=== PATIENT | male | born 1975 | race Hispanic/Latino ===

== ENCOUNTER 2023-11-22 19:06 | Inpatient (IN) | payer BC ==
[~2023-11-22] VITALS: Ht 165.1 cm; Wt 84.4 kg
[2023-11-22 19:40] VITALS: PULSE 101; RESP 20; O2SAT 99
[2023-11-22] MEDS ORDERED: SODIUM CHLORIDE FLUSH 10 ML SYR INJ PRN (19:45)
[2023-11-22 20:25] LABS: INR 0.98; PARTIAL THROMBOPLASTIN TIME 26.9 seconds (23.8-35.5); PROTHROMBIN TIME 13.5 seconds (11.9-14.5)
[2023-11-22 20:26] LABS: ALANINE AMINOTRANSFERASE < 6 IU/L (0-55); ALBUMIN 3.5 g/dL (3.5-5.0); ALBUMIN/GLOBULIN RATIO 1.2 (0.8-2.0); ALKALINE PHOSPHATASE 63 IU/L (40-150); ANION GAP 13.9 mmol/L (8-16); BILIRUBIN,TOTAL 0.6 mg/dL (0.2-1.2); BLOOD UREA NITROGEN 10 mg/dL (7-26); BUN/CREATININE RATIO 15 (6-25); CALCIUM 9.2 mg/dL (8.4-10.2); CARBON DIOXIDE 24 mmol/L (22-29); CHLORIDE 101 mmol/L (98-107); CREATININE, SERUM 0.67 mg/dL (0.72-1.25); EST GLOMERULAR FILTRATION RATE 114 ML/MIN (>=60); GLUCOSE 134 mg/dL (74-118); POTASSIUM 3.9 mmol/L (3.5-5.1); SODIUM 135 mmol/L (136-145); TOTAL PROTEIN 6.4 g/dL (6.5-8.1)
[2023-11-22 20:27] LABS: TROPONIN I 0.018 ng/mL (0-0.300)
[2023-11-22 20:29] LABS: RED BLOOD COUNT 2.53 x10e6/uL (4.3-5.7)
[2023-11-22 20:30] LABS: EOSINOPHILS # (AUTO) 0.2 (0.0-0.4); EOSINOPHILS % 2.3 % (0.0-6.0); LYMPHOCYTES # (AUTO) 1.5 (1.0-3.2); LYMPHOCYTES % 19.5 % (18.0-39.1); MEAN CORPUSCULAR HEMOGLOBIN 18.6 pg (28-32); MEAN CORPUSCULAR HGB CONC 25.8 g/dL (31-35); MEAN CORPUSCULAR VOLUME 71.9 fL (81-99); MONOCYTES # (AUTO) 0.6 (0.2-0.8); MONOCYTES % 7.5 % (4.4-11.3); NEUTROPHILS # (AUTO) 5.6 (2.1-6.9); NEUTROPHILS % 70.3 % (38.7-80.0); PLATELET COUNT 279 x10e3/uL (140-360); RED CELL DISTRIBUTION WIDTH 19.8 % (11.7-14.4)
[2023-11-22 20:47] LABS: HEMATOCRIT 18.2 % (38.2-49.6); HEMOGLOBIN 4.7 g/dL (14.0-18.0)
[2023-11-22] MEDS ORDERED: DOCUSATE SODIUM 100 MG CAP PO PRN (23:00)
[2023-11-22] MEDS ORDERED: BENZONATATE 100 MG CAP PO PRN (23:00)
[2023-11-22] MEDS ORDERED: POTASSIUM CHLORIDE 20 MEQ TAB CR PO PRN (23:00)
[2023-11-22] MEDS ORDERED: DEXTROSE 50% SYRINGE 50 ML IV PRN (23:00)
[2023-11-22] MEDS ORDERED: ALBUTEROL/IPRATROPIUM 3 ML NEB NEB PRN (23:00)
[2023-11-22] MEDS ORDERED: HYDRALAZINE HCL 20 MG/ML VIAL IV PRN (23:00)
[2023-11-22] MEDS ORDERED: SIMETHICONE 80 MG CHEW PO PRN (23:00)
[2023-11-22] MEDS ORDERED: LIDOCAINE 4% PATCH TP PRN (23:00)
[2023-11-23 00:45] LABS: % IRON SATURATION 2 % (15-50); IRON 13 ug/dL (65-175); TOTAL IRON BINDING CAPACITY 535 ug/dL (261-478); TRANSFERRIN 382 mg/dL (174-364)
[2023-11-23] MEDS: SODIUM CHLORIDE 0.9% 250ML 250 ML IV ONE (01:06)
[2023-11-23 07:14] LABS: BASOPHILS # (AUTO) 0.1 (0.0-0.1); BASOPHILS % 1.2 % (0.0-1.0); EOSINOPHILS # (AUTO) 0.2 (0.0-0.4); EOSINOPHILS % 3.1 % (0.0-6.0); HEMATOCRIT 24.8 % (38.2-49.6); LYMPHOCYTES # (AUTO) 1.2 (1.0-3.2); LYMPHOCYTES % 17.6 % (18.0-39.1); MEAN CORPUSCULAR HEMOGLOBIN 22.9 pg (28-32); MEAN CORPUSCULAR HGB CONC 29.8 g/dL (31-35); MEAN CORPUSCULAR VOLUME 76.8 fL (81-99); MONOCYTES # (AUTO) 0.6 (0.2-0.8); MONOCYTES % 8.6 % (4.4-11.3); NEUTROPHILS # (AUTO) 4.7 (2.1-6.9); NEUTROPHILS % 69.1 % (38.7-80.0); PLATELET COUNT 235 x10e3/uL (140-360); RED BLOOD COUNT 3.23 x10e6/uL (4.3-5.7); WHITE BLOOD COUNT 6.75 x10e3/uL (4.8-10.8)
[2023-11-23 07:18] LABS: HEMOGLOBIN 7.4 g/dL (14.0-18.0)
[2023-11-23 07:40] LABS: ANION GAP 12.1 mmol/L (8-16); CALCIUM 8.8 mg/dL (8.4-10.2); CREATININE, SERUM 0.64 mg/dL (0.72-1.25); POTASSIUM 4.1 mmol/L (3.5-5.1)
[2023-11-23 07:52] VITALS: TEMP 98.7
[2023-11-23 08:03] LABS: FERRITIN 4.97 ng/mL (21.81-274.66); THYROID STIMULATING HORMONE 1.035 uIU/mL (0.350-4.940)
[2023-11-23 09:53] VITALS: PULSE 99; RESP 16; O2SAT 98
[2023-11-23 10:16] LABS: ANISOCYTOSIS MODERATE; HYPOCHROMASIA MODERATE; MICROCYTOSIS MODERATE; PLATELET ESTIMATE ADEQUATE; PLATELET MORPHOLOGY COMMENT FEW LARGE; POLYCHROMASIA FEW; RBC MORPHOLOGY COMMENT ABNORMAL; TARGET CELLS FEW
[2023-11-23] MEDS ORDERED: SUGAMMADEX SODIUM 200 MG/2 ML VIAL IV ONE (12:02)
[2023-11-23] MEDS ORDERED: ROCURONIUM BROMIDE 10 MG/ML 5ML VIAL IV ONE (12:02)
[2023-11-23] MEDS ORDERED: PROPOFOL IV EMULSION 10 MG/ML 20 ML VIAL ONE ×2 (12:02→17:39)
[2023-11-23] MEDS ORDERED: LIDOCAINE HCL 2% LOCAL INJ 5 ML SDV VIAL INJ ONE ×2 (12:02→17:39)
[2023-11-23] MEDS ORDERED: KETAMINE HCL INJ 50 MG/ML 10 ML VIAL ONE (12:02)
[2023-11-23] MEDS ORDERED: DEXAMETHASONE SOD PHOS INJ 4 MG/ML SDV ONE (12:02)
[2023-11-23] MEDS ORDERED: ONDANSETRON HCL INJ 2MG/ML 2ML 2 MG/ML VIAL ONE (12:02)
[2023-11-23] MEDS ORDERED: ACETAMINOPHEN 1000 MG/100 ML IV ONE (12:02)
[2023-11-23] MEDS ORDERED: DEXMEDETOMIDINE HCL 200 MCG/2 ML VIAL ONE (12:02)
[2023-11-23 13:47] LABS: FOLATE 14.4 ng/mL (7.0-15.4)
[2023-11-23] MEDS ORDERED: CYANOCOBALAMIN 1,000 MCG TAB PO SCH (18:00)
[2023-11-23 19:00] VITALS: PULSE 72; RESP 19; O2SAT 99
[2023-11-23 22:30] VITALS: BP 128/85; PULSE 71; RESP 17; TEMP 98.2; O2SAT 100
[2023-11-23] MEDS: BISACODYL 5 MG TAB EC PO SCH (23:04)
[2023-11-23] MEDS ORDERED: CYANOCOBALAMIN INJ 1,000 MCG/ML VIAL IM ONE (23:45)
[2023-11-24] VITALS (10 sets, daily range): BP systolic 101–128; BP diastolic 62–85; PULSE 67–98; RESP 16–22; TEMP 98.1–99.6; O2SAT 95–100
[2023-11-24] MEDS: CYANOCOBALAMIN INJ 1,000 MCG/ML VIAL IM ONE (00:11)
[2023-11-24] MEDS: MELATONIN 5 MG TABLET PO PRN (00:21)
[2023-11-24] MEDS: IRON SUCROSE 100 MG in SODIUM CHLORIDE 0.9% 100 ML IV SCH (00:21)
[2023-11-24] MEDS: BISACODYL 5 MG TAB EC PO ONE (05:10)
[2023-11-24] MEDS: CITRATE OF MAGNESIA 300ML BOTTLE PO SCH (05:16)
[2023-11-24 05:21] LABS: BASOPHILS # (AUTO) 0.1 (0.0-0.1); BASOPHILS % 0.9 % (0.0-1.0); EOSINOPHILS # (AUTO) 0.2 (0.0-0.4); EOSINOPHILS % 3.2 % (0.0-6.0); HEMATOCRIT 23.4 % (38.2-49.6); HEMOGLOBIN 7.1 g/dL (14.0-18.0); LYMPHOCYTES # (AUTO) 1.1 (1.0-3.2); LYMPHOCYTES % 16.4 % (18.0-39.1); MEAN CORPUSCULAR HEMOGLOBIN 22.9 pg (28-32); MEAN CORPUSCULAR HGB CONC 30.3 g/dL (31-35); MEAN CORPUSCULAR VOLUME 75.5 fL (81-99); MONOCYTES # (AUTO) 0.6 (0.2-0.8); MONOCYTES % 9.3 % (4.4-11.3); NEUTROPHILS # (AUTO) 4.6 (2.1-6.9); NEUTROPHILS % 69.7 % (38.7-80.0); PLATELET COUNT 246 x10e3/uL (140-360); RED CELL DISTRIBUTION WIDTH 20.2 % (11.7-14.4); WHITE BLOOD COUNT 6.58 x10e3/uL (4.8-10.8)
[2023-11-24 05:41] LABS: ANION GAP 13.8 mmol/L (8-16); CALCIUM 8.7 mg/dL (8.4-10.2); CREATININE, SERUM 0.66 mg/dL (0.72-1.25); POTASSIUM 3.8 mmol/L (3.5-5.1)
[2023-11-24] MEDS ORDERED: METFORMIN HCL500 MG PO (08:06)
[2023-11-24] MEDS ORDERED: LOSARTAN POTASS50 MG PO (08:06)
[2023-11-24] MEDS ORDERED: GLYBURIDE5 MG PO (08:06)
[2023-11-24] MEDS ORDERED: CYANOCOBALAMIN INJ 1,000 MCG/ML VIAL IM SCH (09:00)
[2023-11-24] MEDS: CYANOCOBALAMIN INJ 1,000 MCG/ML VIAL IM SCH (09:22)
[2023-11-24] MEDS ORDERED: PROPOFOL IV EMULSION 0 ML IV ONE (15:09)
[2023-11-25] VITALS (11 sets, daily range): BP systolic 95–125; BP diastolic 65–78; PULSE 65–88; RESP 16–20; TEMP 98.3–99; O2SAT 96–100
[2023-11-25] MEDS: CITRATE OF MAGNESIA 300ML BOTTLE PO ONE ×2 (00:22→09:25)
[2023-11-26] VITALS (11 sets, daily range): BP systolic 89–119; BP diastolic 51–89; PULSE 63–73; RESP 17–18; TEMP 97.7–99.2; O2SAT 97–100
[2023-11-26 05:15] LABS: BASOPHILS % 0.4 % (0.0-1.0); EOSINOPHILS # (AUTO) 0.2 (0.0-0.4); EOSINOPHILS % 2.7 % (0.0-6.0); HEMATOCRIT 27.5 % (38.2-49.6); HEMOGLOBIN 7.8 g/dL (14.0-18.0); LYMPHOCYTES % 14.2 % (18.0-39.1); MEAN CORPUSCULAR HEMOGLOBIN 22.7 pg (28-32); MEAN CORPUSCULAR HGB CONC 28.4 g/dL (31-35); MONOCYTES # (AUTO) 0.7 (0.2-0.8); MONOCYTES % 9.9 % (4.4-11.3); NEUTROPHILS # (AUTO) 5.1 (2.1-6.9); NEUTROPHILS % 72.1 % (38.7-80.0); PLATELET COUNT 258 x10e3/uL (140-360); RED BLOOD COUNT 3.43 x10e6/uL (4.3-5.7); RED CELL DISTRIBUTION WIDTH 22.7 % (11.7-14.4); WHITE BLOOD COUNT 7.06 x10e3/uL (4.8-10.8)
[2023-11-26 05:18] LABS: MEAN CORPUSCULAR VOLUME 80.2 fL (81-99)
[2023-11-26 05:33] LABS: ANION GAP 11.5 mmol/L (8-16); CREATININE, SERUM 0.71 mg/dL (0.72-1.25); POTASSIUM 3.5 mmol/L (3.5-5.1)
[2023-11-26] MEDS ORDERED: IOPAMIDOL 370 MG/ML 100 ML INFUS..BTL INJ ONE (07:02)
[2023-11-26] MEDS ORDERED: SODIUM CHLORIDE 0.9% 200 ML ONE (14:27)
[2023-11-26] MEDS ORDERED: SODIUM CHLORIDE 0.9% 100 ML ONE (14:27)
[2023-11-27] VITALS (9 sets, daily range): BP systolic 100–118; BP diastolic 64–82; PULSE 67–79; RESP 18–20; TEMP 97.1–99.9; O2SAT 96–100
[2023-11-28] VITALS (11 sets, daily range): BP systolic 90–116; BP diastolic 63–72; PULSE 59–79; RESP 16–18; TEMP 98.2–99.4; O2SAT 96–100
[2023-11-28] MEDS: ACETAMINOPHEN 325 MG TAB PO PRN (00:26)
[2023-11-28] MEDS: MIDODRINE 2.5 MG TAB PO ONE (14:22)
[2023-11-28] MEDS: DEXTROSE 5%/0.9% SOD CHL 1,000 ML IV SCH (14:22)
[2023-11-28 14:43] LABS: BASOPHILS % 0.5 % (0.0-1.0); EOSINOPHILS # (AUTO) 0.2 (0.0-0.4); EOSINOPHILS % 2.6 % (0.0-6.0); HEMATOCRIT 27.8 % (38.2-49.6); LYMPHOCYTES # (AUTO) 1.2 (1.0-3.2); LYMPHOCYTES % 15.7 % (18.0-39.1); MEAN CORPUSCULAR HGB CONC 28.8 g/dL (31-35); MEAN CORPUSCULAR VOLUME 79.9 fL (81-99); MONOCYTES # (AUTO) 0.7 (0.2-0.8); NEUTROPHILS # (AUTO) 5.3 (2.1-6.9); NEUTROPHILS % 71.7 % (38.7-80.0); PLATELET COUNT 223 x10e3/uL (140-360); RED BLOOD COUNT 3.48 x10e6/uL (4.3-5.7); RED CELL DISTRIBUTION WIDTH 23.9 % (11.7-14.4); WHITE BLOOD COUNT 7.43 x10e3/uL (4.8-10.8)
[2023-11-28 14:57] LABS: ANION GAP 13.9 mmol/L (8-16); CREATININE, SERUM 0.69 mg/dL (0.72-1.25); POTASSIUM 3.9 mmol/L (3.5-5.1)
[2023-11-28] MEDS: SODIUM CHLORIDE 0.9% 500ML 500 ML IV ONE (15:10)
[2023-11-28 15:21] LABS: CALCIUM 8.9 mg/dL (8.4-10.2)
[2023-11-28] MEDS: DIPHENHYDRAMINE HCL 25 MG CAP PO PRN (21:33)
[2023-11-29] VITALS (31 sets, daily range): BP systolic 100–146; BP diastolic 63–93; PULSE 57–80; RESP 8–20; TEMP 97.4–99.4; O2SAT 96–100
[2023-11-29 05:47] LABS: BASOPHILS # (AUTO) 0.1 (0.0-0.1); BASOPHILS % 0.7 % (0.0-1.0); EOSINOPHILS # (AUTO) 0.3 (0.0-0.4); EOSINOPHILS % 3.4 % (0.0-6.0); HEMATOCRIT 29.2 % (38.2-49.6); LYMPHOCYTES # (AUTO) 1.2 (1.0-3.2); LYMPHOCYTES % 15.6 % (18.0-39.1); MEAN CORPUSCULAR HEMOGLOBIN 22.8 pg (28-32); MEAN CORPUSCULAR HGB CONC 27.4 g/dL (31-35); MONOCYTES # (AUTO) 0.7 (0.2-0.8); MONOCYTES % 9.8 % (4.4-11.3); NEUTROPHILS # (AUTO) 5.2 (2.1-6.9); NEUTROPHILS % 69.4 % (38.7-80.0); PLATELET COUNT 217 x10e3/uL (140-360); RED BLOOD COUNT 3.51 x10e6/uL (4.3-5.7); RED CELL DISTRIBUTION WIDTH 23.4 % (11.7-14.4); WHITE BLOOD COUNT 7.55 x10e3/uL (4.8-10.8)
[2023-11-29 05:50] LABS: MEAN CORPUSCULAR VOLUME 83.2 fL (81-99)
[2023-11-29 06:30] LABS: ANION GAP 10.7 mmol/L (8-16); CALCIUM 8.5 mg/dL (8.4-10.2); CREATININE, SERUM 0.65 mg/dL (0.72-1.25); POTASSIUM 3.7 mmol/L (3.5-5.1)
[2023-11-29 07:11] LABS: ANISOCYTOSIS MODERATE; HYPOCHROMASIA MODERATE; PLATELET ESTIMATE ADEQUATE; PLATELET MORPHOLOGY COMMENT NORMAL; RBC MORPHOLOGY COMMENT ABNORMAL
[2023-11-29] MEDS: SODIUM CHLORIDE 0.9% 250ML 250 ML IV ONE (07:29)
[2023-11-29] MEDS ORDERED: FENTANYL CITRATE/PF 100MCG/2 ML INJ ONE (10:58)
[2023-11-29] MEDS ORDERED: NALOXONE HCL INJ 0.4 MG/ML AMP IV PRN (16:15)
[2023-11-29] MEDS: HYDROMORPHONE 0.2MG/ML-SOD CHL 30ML PCA SYRINGE IV PRN (16:41)
[2023-11-29] MEDS: DEXTROSE 5%/LACTATED RINGERS 1,000 ML IV SCH (17:30)
[2023-11-29] MEDS ORDERED: ACETAMINOPHEN 1000 MG/100 ML IV PRN (18:00)
[2023-11-29] MEDS: SODIUM CHLORIDE 0.9% 250ML IRRIG IR SCH (20:15)
[2023-11-30] VITALS (62 sets, daily range): BP systolic 94–134; BP diastolic 63–84; PULSE 67–93; RESP 6–17; TEMP 97.9–98.3; O2SAT 88–100
[2023-11-30 06:53] LABS: BASOPHILS % 0.2 % (0.0-1.0); EOSINOPHILS # (AUTO) 0.1 (0.0-0.4); EOSINOPHILS % 0.5 % (0.0-6.0); HEMATOCRIT 27.4 % (38.2-49.6); HEMOGLOBIN 7.4 g/dL (14.0-18.0); LYMPHOCYTES # (AUTO) 0.8 (1.0-3.2); LYMPHOCYTES % 8.9 % (18.0-39.1); MEAN CORPUSCULAR HEMOGLOBIN 22.5 pg (28-32); MEAN CORPUSCULAR VOLUME 83.3 fL (81-99); MONOCYTES # (AUTO) 0.8 (0.2-0.8); MONOCYTES % 8.5 % (4.4-11.3); NEUTROPHILS # (AUTO) 7.7 (2.1-6.9); NEUTROPHILS % 81.3 % (38.7-80.0); PLATELET COUNT 227 x10e3/uL (140-360); RED BLOOD COUNT 3.29 x10e6/uL (4.3-5.7); RED CELL DISTRIBUTION WIDTH 23.4 % (11.7-14.4); WHITE BLOOD COUNT 9.43 x10e3/uL (4.8-10.8)
[2023-11-30 07:36] LABS: ALBUMIN 2.6 g/dL (3.5-5.0); ALBUMIN/GLOBULIN RATIO 0.9 (0.8-2.0); ANION GAP 12.1 mmol/L (8-16); CALCIUM 8.4 mg/dL (8.4-10.2); CREATININE, SERUM 0.68 mg/dL (0.72-1.25); POTASSIUM 4.1 mmol/L (3.5-5.1); TOTAL PROTEIN 5.5 g/dL (6.5-8.1)
[2023-11-30] MEDS: ROPIVACAINE/EPI/CLONIDINE/KET 50 ML SYRINGE INJ ONE (08:25)
[2023-11-30 09:35] LABS: LYMPHOCYTES % (MANUAL) 7 % (19-48); MONOCYTES % (MANUAL) 7 % (3.4-9.0); NEUTROPHILS % (MANUAL) 86 % (40-74)
[2023-11-30 09:36] LABS: ANISOCYTOSIS SLIGHT
[2023-11-30 09:37] LABS: PLATELET MORPHOLOGY COMMENT MODERATE LARGE
[2023-11-30 09:38] LABS: PLATELET ESTIMATE ADEQUATE
[2023-11-30 09:40] LABS: HYPOCHROMASIA MODERATE; RBC MORPHOLOGY COMMENT NORMAL
[2023-11-30] MEDS: ACETAMINOPHEN 1000 MG/100 ML IV PRN (17:00)
[2023-11-30] MEDS: SODIUM CHLORIDE 0.9% 1000ML 1,000 ML IV SCH (18:11)
[2023-11-30] MEDS: HYDROMORPHONE 0.2MG/ML-SOD CHL 30ML PCA SYRINGE IV PRN (19:44)
[2023-12-01] VITALS (46 sets, daily range): BP systolic 100–141; BP diastolic 64–101; PULSE 58–91; RESP 5–25; TEMP 97.9–100; O2SAT 95–100
[2023-12-01 06:48] LABS: BASOPHILS # (AUTO) 0.1 (0.0-0.1); BASOPHILS % 0.7 % (0.0-1.0); EOSINOPHILS # (AUTO) 0.1 (0.0-0.4); EOSINOPHILS % 1.1 % (0.0-6.0); HEMATOCRIT 23.9 % (38.2-49.6); LYMPHOCYTES # (AUTO) 0.8 (1.0-3.2); LYMPHOCYTES % 9.8 % (18.0-39.1); MEAN CORPUSCULAR HEMOGLOBIN 23.3 pg (28-32); MEAN CORPUSCULAR HGB CONC 27.6 g/dL (31-35); MEAN CORPUSCULAR VOLUME 84.5 fL (81-99); MONOCYTES # (AUTO) 0.6 (0.2-0.8); MONOCYTES % 7.4 % (4.4-11.3); NEUTROPHILS # (AUTO) 6.9 (2.1-6.9); NEUTROPHILS % 80.6 % (38.7-80.0); PLATELET COUNT 203 x10e3/uL (140-360); RED BLOOD COUNT 2.83 x10e6/uL (4.3-5.7); RED CELL DISTRIBUTION WIDTH 23.5 % (11.7-14.4); WHITE BLOOD COUNT 8.57 x10e3/uL (4.8-10.8)
[2023-12-01 06:51] LABS: HEMOGLOBIN 6.6 g/dL (14.0-18.0)
[2023-12-01 07:13] LABS: ALBUMIN 2.4 g/dL (3.5-5.0); ALBUMIN/GLOBULIN RATIO 0.8 (0.8-2.0); ANION GAP 10.5 mmol/L (8-16); CALCIUM 8.3 mg/dL (8.4-10.2); CREATININE, SERUM 0.59 mg/dL (0.72-1.25); POTASSIUM 3.5 mmol/L (3.5-5.1); TOTAL PROTEIN 5.3 g/dL (6.5-8.1)
[2023-12-01 08:32] LABS: ANISOCYTOSIS MODERATE; PLATELET ESTIMATE ADEQUATE; PLATELET MORPHOLOGY COMMENT NORMAL; RBC MORPHOLOGY COMMENT ABNORMAL
[2023-12-01 08:33] LABS: HYPOCHROMASIA MODERATE
[2023-12-01] MEDS: SODIUM CHLORIDE 0.9% 250ML 250 ML IV ONE (09:45)
[2023-12-01] MEDS: FUROSEMIDE INJ 10 MG/ML 2 ML VIAL IV ONE ×3 (11:45→14:24)
[2023-12-01] MEDS: ONDANSETRON HCL INJ 2MG/ML 2ML 2 MG/ML VIAL IV PRN (13:08)
[2023-12-01] MEDS ORDERED: FUROSEMIDE INJ 10 MG/ML 2 ML VIAL ONE (14:11)
[2023-12-01 16:11] LABS: HEMATOCRIT 29.8 % (38.2-49.6); HEMOGLOBIN 8.7 g/dL (14.0-18.0)
[2023-12-01] MEDS: PERIPHERAL TPN FORMULA 1 BAG IV SCH (20:34)
[2023-12-02] VITALS (24 sets, daily range): BP systolic 109–148; BP diastolic 67–117; PULSE 58–78; RESP 6–19; TEMP 97.6–98.9; O2SAT 95–99
[2023-12-02 06:46] LABS: BASOPHILS # (AUTO) 0.1 (0.0-0.1); BASOPHILS % 0.5 % (0.0-1.0); EOSINOPHILS # (AUTO) 0.2 (0.0-0.4); EOSINOPHILS % 1.7 % (0.0-6.0); HEMATOCRIT 28.5 % (38.2-49.6); HEMOGLOBIN 8.3 g/dL (14.0-18.0); LYMPHOCYTES # (AUTO) 0.8 (1.0-3.2); LYMPHOCYTES % 9.1 % (18.0-39.1); MEAN CORPUSCULAR HEMOGLOBIN 24.6 pg (28-32); MEAN CORPUSCULAR HGB CONC 29.1 g/dL (31-35); MEAN CORPUSCULAR VOLUME 84.3 fL (81-99); MONOCYTES # (AUTO) 0.7 (0.2-0.8); MONOCYTES % 7.9 % (4.4-11.3); NEUTROPHILS # (AUTO) 7.4 (2.1-6.9); NEUTROPHILS % 80.5 % (38.7-80.0); PLATELET COUNT 212 x10e3/uL (140-360); RED BLOOD COUNT 3.38 x10e6/uL (4.3-5.7); RED CELL DISTRIBUTION WIDTH 20.8 % (11.7-14.4); WHITE BLOOD COUNT 9.15 x10e3/uL (4.8-10.8)
[2023-12-02 07:08] LABS: ALBUMIN 2.3 g/dL (3.5-5.0); ALBUMIN/GLOBULIN RATIO 0.7 (0.8-2.0); ANION GAP 11.4 mmol/L (8-16); BILIRUBIN,TOTAL 1.6 mg/dL (0.2-1.2); CALCIUM 8.6 mg/dL (8.4-10.2); CREATININE, SERUM 0.55 mg/dL (0.72-1.25); MAGNESIUM 1.4 MG/DL (1.3-2.1); PHOSPHORUS 2.7 MG/DL (2.3-4.7); TOTAL PROTEIN 5.5 g/dL (6.5-8.1)
[2023-12-02 07:10] LABS: POTASSIUM 3.4 mmol/L (3.5-5.1)
[2023-12-02] MEDS: CYANOCOBALAMIN INJ 1,000 MCG/ML VIAL IM SCH (08:03)
[2023-12-02 09:42] LABS: LYMPHOCYTES % (MANUAL) 10 % (19-48); MONOCYTES % (MANUAL) 4 % (3.4-9.0); NEUTROPHILS % (MANUAL) 86 % (40-74); PLATELET ESTIMATE ADEQUATE; PLATELET MORPHOLOGY COMMENT NORMAL; RBC MORPHOLOGY COMMENT NORMAL
[2023-12-02] MEDS: SODIUM CHLORIDE 0.9% 250ML 250 ML ONE (12:23)
[2023-12-02] MEDS ORDERED: CHLORASEPTIC SPRAY 177 ML BTL MM PRN (12:45)
[2023-12-02] MEDS: SODIUM CHLORIDE 0.9% 1000ML 1,000 ML IV SCH (20:40)
[2023-12-02] MEDS: BISACODYL 10 MG SUPP PR SCH (20:40)
[2023-12-03] VITALS (9 sets, daily range): BP systolic 130–151; BP diastolic 81–96; PULSE 70–86; RESP 16–21; TEMP 98.4–98.9; O2SAT 92–98
[2023-12-03] MEDS: HYDROMORPHONE 1MG/1ML INJ IV PRN (09:45)
[2023-12-03 13:27] LABS: BASOPHILS % 0.3 % (0.0-1.0); EOSINOPHILS # (AUTO) 0.2 (0.0-0.4); EOSINOPHILS % 1.6 % (0.0-6.0); HEMATOCRIT 29.2 % (38.2-49.6); HEMOGLOBIN 8.7 g/dL (14.0-18.0); LYMPHOCYTES # (AUTO) 0.7 (1.0-3.2); LYMPHOCYTES % 7.1 % (18.0-39.1); MEAN CORPUSCULAR HEMOGLOBIN 24.2 pg (28-32); MEAN CORPUSCULAR HGB CONC 29.8 g/dL (31-35); MEAN CORPUSCULAR VOLUME 81.1 fL (81-99); MONOCYTES # (AUTO) 0.7 (0.2-0.8); MONOCYTES % 7.1 % (4.4-11.3); NEUTROPHILS # (AUTO) 8.2 (2.1-6.9); NEUTROPHILS % 83.6 % (38.7-80.0); PLATELET COUNT 292 x10e3/uL (140-360); RED CELL DISTRIBUTION WIDTH 21.5 % (11.7-14.4)
[2023-12-03 16:15] LABS: BASOPHILS % (MANUAL) 1 % (0-1.5); EOSINOPHILS % (MANUAL) 5 % (0-7); LYMPHOCYTES % (MANUAL) 6 % (19-48); MONOCYTES % (MANUAL) 2 % (3.4-9.0); NEUTROPHILS % (MANUAL) 86 % (40-74); PLATELET MORPHOLOGY COMMENT NORMAL
[2023-12-03 16:16] LABS: HYPOCHROMASIA SLIGHT; PLATELET ESTIMATE ADEQUATE; POIKILOCYTOSIS SLIG; RBC MORPHOLOGY COMMENT NORMAL
[2023-12-03] MEDS: CENTRAL TPN FORMULA 1 BAG IV SCH (20:06)
[2023-12-04] VITALS (10 sets, daily range): BP systolic 127–147; BP diastolic 82–95; PULSE 69–80; RESP 16–20; TEMP 98.1–99.2; O2SAT 91–99
[2023-12-04] MEDS: ENOXAPARIN SOD INJ 40 MG/0.4 ML SYR SC SCH (17:29)
[2023-12-04] MEDS: ACETAMINOPHEN 1000 MG/100 ML IV PRN (23:38)
[2023-12-05] VITALS (10 sets, daily range): BP systolic 124–158; BP diastolic 87–96; PULSE 57–76; RESP 16–18; TEMP 98–98.7; O2SAT 96–100
[2023-12-05 05:29] LABS: BASOPHILS # (AUTO) 0.1 (0.0-0.1); BASOPHILS % 0.8 % (0.0-1.0); EOSINOPHILS # (AUTO) 0.3 (0.0-0.4); EOSINOPHILS % 4.5 % (0.0-6.0); HEMATOCRIT 30.8 % (38.2-49.6); HEMOGLOBIN 8.9 g/dL (14.0-18.0); LYMPHOCYTES # (AUTO) 0.8 (1.0-3.2); LYMPHOCYTES % 11.9 % (18.0-39.1); MEAN CORPUSCULAR HEMOGLOBIN 23.4 pg (28-32); MEAN CORPUSCULAR HGB CONC 28.9 g/dL (31-35); MEAN CORPUSCULAR VOLUME 80.8 fL (81-99); MONOCYTES # (AUTO) 0.6 (0.2-0.8); MONOCYTES % 9.2 % (4.4-11.3); NEUTROPHILS # (AUTO) 4.7 (2.1-6.9); PLATELET COUNT 357 x10e3/uL (140-360); RED BLOOD COUNT 3.81 x10e6/uL (4.3-5.7); WHITE BLOOD COUNT 6.41 x10e3/uL (4.8-10.8)
[2023-12-05 05:50] LABS: ANION GAP 12.4 mmol/L (8-16); CALCIUM 8.7 mg/dL (8.4-10.2); CREATININE, SERUM 0.55 mg/dL (0.72-1.25); MAGNESIUM 1.5 MG/DL (1.3-2.1); PHOSPHORUS 3.6 MG/DL (2.3-4.7)
[2023-12-05 05:54] LABS: POTASSIUM 3.4 mmol/L (3.5-5.1)
[2023-12-05] MEDS: HYDROCODONE/APAP 7.5MG-325MG 1 EA TAB PO PRN (09:41)
[2023-12-05] MEDS ORDERED: HYDROMORPHONE 1MG/1ML INJ IV PRN (21:15)
[2023-12-05] MEDS: MAGNESIUM HYDROXIDE 30 ML UDC PO ONE (21:22)
[2023-12-05] MEDS: BISACODYL 10 MG SUPP PR SCH (21:23)
[2023-12-06] VITALS (9 sets, daily range): BP systolic 118–142; BP diastolic 86–94; PULSE 54–69; RESP 16–20; TEMP 97.7–98.9; O2SAT 96–100
[2023-12-06 05:03] LABS: BASOPHILS % 0.5 % (0.0-1.0); EOSINOPHILS # (AUTO) 0.4 (0.0-0.4); EOSINOPHILS % 4.7 % (0.0-6.0); HEMATOCRIT 30.8 % (38.2-49.6); HEMOGLOBIN 8.9 g/dL (14.0-18.0); LYMPHOCYTES # (AUTO) 1.1 (1.0-3.2); MEAN CORPUSCULAR HEMOGLOBIN 23.2 pg (28-32); MEAN CORPUSCULAR HGB CONC 28.9 g/dL (31-35); MEAN CORPUSCULAR VOLUME 80.4 fL (81-99); MONOCYTES # (AUTO) 0.7 (0.2-0.8); MONOCYTES % 8.6 % (4.4-11.3); NEUTROPHILS # (AUTO) 5.4 (2.1-6.9); NEUTROPHILS % 71.5 % (38.7-80.0); PLATELET COUNT 389 x10e3/uL (140-360); RED BLOOD COUNT 3.83 x10e6/uL (4.3-5.7); WHITE BLOOD COUNT 7.58 x10e3/uL (4.8-10.8)
[2023-12-06 05:32] LABS: ANION GAP 13.6 mmol/L (8-16); CALCIUM 8.8 mg/dL (8.4-10.2); CREATININE, SERUM 0.56 mg/dL (0.72-1.25); POTASSIUM 3.6 mmol/L (3.5-5.1)
[2023-12-06 05:33] LABS: MAGNESIUM 1.4 MG/DL (1.3-2.1); PHOSPHORUS 3.5 MG/DL (2.3-4.7)
[2023-12-06 08:32] LABS: EOSINOPHILS % (MANUAL) 3 % (0-7); LYMPHOCYTES % (MANUAL) 11 % (19-48); MONOCYTES % (MANUAL) 7 % (3.4-9.0); NEUTROPHILS % (MANUAL) 79 % (40-74); PLATELET ESTIMATE ADEQUATE; PLATELET MORPHOLOGY COMMENT NORMAL
[2023-12-06 08:33] LABS: ANISOCYTOSIS SLIGHT; RBC MORPHOLOGY COMMENT NORMAL
[2023-12-06] MEDS: PANTOPRAZOLE SOD 40 MG TABEC PO SCH (08:37)
[2023-12-06] MEDS: PERIPHERAL TPN FORMULA 1 BAG IV SCH (20:31)
[2023-12-07] VITALS (7 sets, daily range): BP systolic 122–138; BP diastolic 87–97; PULSE 60–74; RESP 18–20; TEMP 97.5–98.3; O2SAT 97–100
[2023-12-08] MEDS ORDERED: PANTOPRAZOLE SO40 MG PO (11:50)
== END 2023-12-07 19:41 | disposition home or self-care (01) | DRG 326 ==
LOC: ER 19:16 → ERHOLD 19:37 → OBSVTOIN 11-23 16:15 → MED/SURG2 11-23 21:22 → ICU 11-29 16:45 → MED/SURG 12-02 22:42 → MED/SURG2 12-03 15:10
PROVIDERS: ADMIT Internal Medicine; ATTEND Internal Medicine
PROC: 30233N1 Transfusion of Nonautologous Red Blood Cells into Peripheral Vein, Percutaneous Approach (ICD-10-PCS; 2023-11-22)
PROC: 0DJD8ZZ Inspection of Lower Intestinal Tract, Via Natural or Artificial Opening Endoscopic (ICD-10-PCS; 2023-11-25)
PROC: 0DB78ZX Excision of Stomach, Pylorus, Via Natural or Artificial Opening Endoscopic, Diagnostic (ICD-10-PCS; principal; 2023-11-25 17:49)
PROC: 0DB68ZX Excision of Stomach, Via Natural or Artificial Opening Endoscopic, Diagnostic (ICD-10-PCS; 2023-11-25 17:49)
PROC: 0D160ZA Bypass Stomach to Jejunum, Open Approach (ICD-10-PCS; 2023-11-29)
PROC: 0DB60ZZ Excision of Stomach, Open Approach (ICD-10-PCS; 2023-11-29)
PROC: 0DBU0ZZ Excision of Omentum, Open Approach (ICD-10-PCS; 2023-11-29)
PROC: 02HV33Z Insertion of Infusion Device into Superior Vena Cava, Percutaneous Approach (ICD-10-PCS; 2023-12-01)
PROC: 3E0336Z Introduction of Nutritional Substance into Peripheral Vein, Percutaneous Approach (ICD-10-PCS; 2023-12-01)
DX: C16.3 Malignant neoplasm of pyloric antrum (principal); K25.4 Chronic or unspecified gastric ulcer with hemorrhage; T80.1XXA Vascular complications following infusion, transfusion and therapeutic injection, initial encounter; D50.0 Iron deficiency anemia secondary to blood loss (chronic); E11.9 Type 2 diabetes mellitus without complications; I10 Essential (primary) hypertension; K21.00 Gastro-esophageal reflux disease with esophagitis, without bleeding; K64.8 Other hemorrhoids; R06.02 Shortness of breath; R91.1 Solitary pulmonary nodule; L98.6 Other infiltrative disorders of the skin and subcutaneous tissue; Y84.8 Other medical procedures as the cause of abnormal reaction of the patient, or of later complication, without mention of misadventure at the time of the procedure; Z79.84 Long term (current) use of oral hypoglycemic drugs
CPT/HCPCS: 36415; 36569; 43239; 45378; 71045; 71260; 74177; 80048; 80053; 82378; 82607; 82728; 82746; 82948; 83010; 83036; 83540; 83615; 83735; 84100; 84443; 84466; 84484; 85014; 85018; 85025; 85045; 85610; 85730; 86850; 86900; 86920; 88304; 88305; 88309; 88331; 88342; 88365; 93005; 94799; 96361; 99252; 99284; G0378; J0694; J1100; J1171; J1650; J1756; J1940; J2003; J2405; J2470; J2795; J3420; J7030; J7040; J7042; J7050; P9016; Q9967

== ENCOUNTER → 2024-01-10 | Outpatient (REF) | payer BC ==
[~2024-01-10] MED LIST: GLYBURIDE5 MG PO; LOSARTAN POTASS50 MG PO; METFORMIN HCL500 MG PO; PANTOPRAZOLE SO40 MG PO
== END ==
LOC: CT 14:50
PROVIDERS: ATTEND Internal Medicine
DX: R91.1 Solitary pulmonary nodule (principal)
CPT/HCPCS: 71250

== ENCOUNTER → 2024-04-29 | Day surgery (SDC) | payer BC ==
[2024-04-24 09:03] LABS: BASOPHILS % 0.6 % (0.0-1.0); EOSINOPHILS # (AUTO) 0.1 (0.0-0.4); EOSINOPHILS % 1.4 % (0.0-6.0); HEMATOCRIT 40.3 % (38.2-49.6); HEMOGLOBIN 13.1 g/dL (14.0-18.0); LYMPHOCYTES # (AUTO) 1.4 (1.0-3.2); LYMPHOCYTES % 27.8 % (18.0-39.1); MEAN CORPUSCULAR HEMOGLOBIN 29.2 pg (28-32); MEAN CORPUSCULAR HGB CONC 32.5 g/dL (31-35); MEAN CORPUSCULAR VOLUME 89.8 fL (81-99); MONOCYTES # (AUTO) 0.5 (0.2-0.8); MONOCYTES % 10.9 % (4.4-11.3); NEUTROPHILS # (AUTO) 2.9 (2.1-6.9); NEUTROPHILS % 58.9 % (38.7-80.0); PLATELET COUNT 153 x10e3/uL (140-360); RED BLOOD COUNT 4.49 x10e6/uL (4.3-5.7); RED CELL DISTRIBUTION WIDTH 15.7 % (11.7-14.4); WHITE BLOOD COUNT 4.96 x10e3/uL (4.8-10.8)
[~2024-04-29] MED LIST changes: +FENTANYL CITRATE/PF 100MCG/2 ML INJ ONE; +GLYCOPYRROLATE INJ 0.2 MG/ML VIAL ONE; +LACTATED RINGER'S 1,000 ML ONE; +LIDOCAINE HCL 2% LOCAL INJ 5 ML SDV VIAL INJ ONE; +ONDANSETRON HCL INJ 2MG/ML 2ML 2 MG/ML VIAL ONE; +PROPOFOL IV EMULSION 10 MG/ML 20 ML VIAL ONE; +XIGDUO XR 5 MG1 EAC1 PO; +ZESTRIL2.5 MG PO; +[UNRECOGNIZED DRUG - OTHER] PO
[2024-04-29 11:30] VITALS: BP 112/89; PULSE 72; RESP 16; TEMP 97.4; O2SAT 99
== END | disposition home or self-care (01) ==
LOC: OR 08:50
PROVIDERS: ATTEND Internal Medicine Gastroenterology
DX: K28.9 Gastrojejunal ulcer, unspecified as acute or chronic, without hemorrhage or perforation (principal); Z85.028 Personal history of other malignant neoplasm of stomach; K29.70 Gastritis, unspecified, without bleeding; A04.8 Other specified bacterial intestinal infections; R93.3 Abnormal findings on diagnostic imaging of other parts of digestive tract; Z90.3 Acquired absence of stomach [part of]; Z98.0 Intestinal bypass and anastomosis status; K62.5 Hemorrhage of anus and rectum; K59.09 Other constipation; D64.89 Other specified anemias; I10 Essential (primary) hypertension; E11.9 Type 2 diabetes mellitus without complications; Z01.810 Encounter for preprocedural cardiovascular examination; Z01.812 Encounter for preprocedural laboratory examination; Z79.84 Long term (current) use of oral hypoglycemic drugs; Z79.899 Other long term (current) drug therapy; Z92.21 Personal history of antineoplastic chemotherapy; Z80.0 Family history of malignant neoplasm of digestive organs
CPT/HCPCS: 36415; 43239; 85025; 93005; J2003; J2405; J2470; J2704; J3010; J7121